=== PATIENT | female | born 1960 | race African-American/Black ===

== ENCOUNTER 2017-01-20 16:21 | Emergency (ER) | payer BC, OTHER ==
[~2017-01-20] VITALS: Ht 170.2 cm; Wt 59.0 kg
[2017-01-20 17:35] VITALS: BP 165/105
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
== END 2017-01-20 18:57 | disposition home or self-care (01) ==
LOC: ER 16:21
DX: M54.5 Low back pain (principal); V89.2XXA Person injured in unspecified motor-vehicle accident, traffic, initial encounter; Y93.89 Activity, other specified; Y92.488 Other paved roadways as the place of occurrence of the external cause; Y99.8 Other external cause status
CPT/HCPCS: 99281

== ENCOUNTER 2017-05-14 05:42 | Emergency (ER) | payer OTHER ==
[~2017-05-14] VITALS: Ht 175.3 cm; Wt 59.0 kg
[2017-05-14 05:49] VITALS: BP 144/92
[2017-05-14] MEDS ORDERED: IBUP-1007 PO (06:00)
--- NOTE | 2017-05-14 06:00 | PHYS DOC ---
Past Medical History Past Medical History: Hypertension, Other Past Surgical History: Other Additional Past Surgical Histo: CARPAL TUNNEL RELEASE, TRIGGER FINGER RELEASE, L KNEE SHAVING Alcohol Use: Occasionally Drug Use: None Adult General Chief Complaint Chief Complaint: WRIST PAIN HPI HPI Patient is a 56 year old female who presents here today complaining of right wrist pain that started approximately 2 days ago. Patient reports she was downstairs working on laundry in her basement 2 days ago when she thinks she must and picked up her laundry basket funny and started developing pain to her right wrist. Patient has no other complaints at this time. Patient has any weakness to her hand or wrist however she does have pain to the medial and lateral aspect of her distal radius and ulna. Patient denies any history significant for hypertension diabetes lung liver or kidney problems. Patient reports that lately and she's taken assist herself with the pain is shot of vodka last night and help her get some sleep however she reports that the shot of vodka did not do anything for pain nor did help her get any sleep. 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 Review of systems: Constitutional: Denies fever or chills Eyes: Denies change in visual acuity, redness, or eye pain HENT: Denies nasal congestion or sore throat Respiratory: Denies cough or shortness of breath Physical exam Constitutional: Well developed, well nourished, no acute distress, non-toxic appearance. HENT: Normocephalic, atraumatic, bilateral external ears normal, oropharynx moist, no oral exudates, nose normal. Eyes: PERRLA, EOMI, conjunctiva normal, no discharge. Neck: Normal range of motion, no tenderness, supple, no stridor. Cardiovascular:Heart rate regular rhythm, Lungs & Thorax: Bilateral breath sounds clear to auscultation Abdomen: Bowel sounds normal, soft, no tenderness, no masses, no pulsatile masses. Skin: Warm, dry, no erythema, no rash. Back: No tenderness, no CVA tenderness. Extremities: No tenderness, no cyanosis, no clubbing, ROM intact, no edema. Neurologic: Alert and oriented X 3, normal motor function, normal sensory function, no focal deficits noted. Psychologic: Affect normal, judgement normal, mood normal. Patient's ER physical exam is significant for tenderness to palpation to her right lateral medial aspects of her wrist. Patient has no soft tissue swelling. Patient is neurovascularly intact. Patient has no bony deformity. Patient's sensation and motor strength are intact except limited secondary to her discomfort and pain. X-ray right wrist: Assessment and plan This is a 56-year-old female who presents here today requesting assistance with discomfort to her right wrist that she sustained after lifting a heavy laundry basket. Patient is also requesting a work note because she does not think she' ll be able go to work today secondary to the pain in her right wrist. 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 Current Medications Current Medications Current Medications Medications (Trade) Dose Ordered Sig/Ulises Start Time Stop Time Status Last Admin Dose Admin Ibuprofen (Motrin) 600 mg 1X ONCE 05/14/17 06:30 05/14/17 06:31 DC 05/14/17 06:14 600 MG Allergies Allergies Allergies Coded Allergies Type Severity Reaction Last Updated Verified No Known Drug Allergies 11/01/13 No Current Patient Data Vital Signs Vital Signs Date Time Temp Pulse Resp B/P (MAP) Pulse Ox O2 Delivery O2 Flow Rate FiO2 05/14/17 05:49 98.4 88 16 96 Room Air 98.4 EKG EKG [] Radiology/Procedures Radiology/Procedures [] Course & Med Decision Making Course & Med Decision Making Pertinent Labs and Imaging studies reviewed. (See chart for details) [] Dragon Disclaimer Dragon Disclaimer This electronic medical record was generated, in whole or in part, using a voice recognition dictation system. Departure Departure Impression: Primary Impression: Right wrist sprain Disposition: HOME, SELF-CARE Condition: IMPROVED Referrals: UNKNOWN PCP NAME (PCP) Patient Instructions: Cast or Splint Care, Wrist Sprain with [facility] Scripts Ibuprofen (IBUPROFEN) 600 Mg Tablet 600 MG PO PRN Q6HRS Y for PAIN, #20 TAB Prov: CARLOS GREGG MD 05/14/17 Problem Qualifiers Primary Impression: Right wrist sprain Encounter type: initial encounter Qualified Codes: S63.501A - Unspecified sprain of right wrist, initial encounter CARLOS GREGG MD May 14, 2017 06:00
[2017-05-14] MEDS ORDERED: IBUPROFEN 600 MG TABLET. PO ONE (06:30)
--- NOTE | 2017-05-14 07:09 | RAD ---
Right wrist, 3 views, 05/14/2017: History: Wrist pain No acute fracture or dislocation is identified. There is an old healed fifth metacarpal fracture. Small calcific densities in the soft tissues along the ulnar aspect of the wrist appear old. There are mild degenerative changes at the radiocarpal articulation and the first CMC joint. Cystic and sclerotic changes in the lunate bone are probably on a degenerative basis. Old avascular necrosis is less likely. IMPRESSION: 1. Scattered degenerative changes as described above. 2. No acute bony abnormality is detected.
== END 2017-05-14 06:30 | disposition home or self-care (01) ==
LOC: ER 05:42
DX: S63.501A Unspecified sprain of right wrist, initial encounter (principal); I10 Essential (primary) hypertension; X50.0XXA Overexertion from strenuous movement or load, initial encounter; Y93.89 Activity, other specified; Y99.8 Other external cause status; Y92.89 Other specified places as the place of occurrence of the external cause
CPT/HCPCS: 29125; 73110; 99284-25

== ENCOUNTER 2017-08-02 08:59 | Emergency (ER) | payer OTHER | END 2017-08-02 09:59 | disposition home or self-care (01) | LOC: ER 08:59 | DX: S39.012A Strain of muscle, fascia and tendon of lower back, initial encounter (principal); X50.1XXA Overexertion from prolonged static or awkward postures, initial encounter; Y93.89 Activity, other specified; Y92.89 Other specified places as the place of occurrence of the external cause; Y99.8 Other external cause status | CPT/HCPCS: 99283 ==

== ENCOUNTER 2019-02-14 11:23 | Emergency (ER) | payer OTHER ==
[~2019-02-14] VITALS: Ht 175.3 cm; Wt 60.3 kg
[~2019-02-14 11:23] MED LIST: HYDR-3164 PO; IBUP-1007 PO
[2019-02-14] MEDS ORDERED: ASPIRIN 325 MG TABLET PO ONE (11:45)
--- NOTE | 2019-02-14 11:51 | PHYS DOC ---
Past Medical History Past Medical History: No Pertinent History Past Surgical History: Other Additional Past Surgical Histo: CARPAL TUNNEL RELEASE, TRIGGER FINGER RELEASE, L KNEE SHAVING Alcohol Use: Rarely Drug Use: None Adult General Chief Complaint Chief Complaint: CHEST PAIN HPI HPI Patient is a 58 year old female who presents with chest pain that started last night that is a pressure and sharp but comes and goes and is worse with inspiration. Patient states she also has shortness of breath. Patient states that over the last week she's felt more fatigued. Patient rates her pain at a 5/10. Review of Systems Review of Systems Constitutional: Fatigued. Denies fever or chills [] Eyes: Denies change in visual acuity, redness, or eye pain [] HENT: Denies nasal congestion or sore throat [] Respiratory: Denies cough or shortness of breath [] Cardiovascular: Right sided chest pain GI: Denies abdominal pain, nausea, vomiting, bloody stools or diarrhea [] : Denies dysuria or hematuria [] Musculoskeletal: Denies back pain or joint pain [] Integument: Denies rash or skin lesions [] Neurologic: Denies headache, focal weakness or sensory changes [] Endocrine: Denies polyuria or polydipsia [] All other systems were reviewed and found to be within normal limits, except as documented in this note. Current Medications Current Medications Current Medications Medications (Trade) Dose Ordered Sig/Ulises Start Time Stop Time Status Last Admin Dose Admin Aspirin (Babar Aspirin) 325 mg 1X ONCE 02/14/19 11:45 02/14/19 11:46 DC 02/14/19 12:09 325 MG Ketorolac Tromethamine (Toradol 30mg Vial) 30 mg 1X ONCE 02/14/19 12:30 02/14/19 12:31 DC 02/14/19 12:34 30 MG Sodium Chloride 1,000 ml @ 1,000 mls/hr 1X ONCE 02/14/19 13:15 02/14/19 14:14 DC 02/14/19 13:06 1,000 MLS/HR Allergies Allergies Allergies Coded Allergies Type Severity Reaction Last Updated Verified No Known Drug Allergies 11/01/13 No Physical Exam Physical Exam Constitutional: Well developed, well nourished, no acute distress, non-toxic appearance. [] HENT: Normocephalic, atraumatic, bilateral external ears normal, oropharynx mo ist, no oral exudates, nose normal. [] Eyes: PERRLA, EOMI, conjunctiva normal, no discharge. [] Neck: Normal range of motion, no tenderness, supple, no stridor. [] Cardiovascular:Heart rate regular rhythm, Sinus Rhythm, no STEMI. no murmur [] Lungs & Thorax: Bilateral breath sounds clear to auscultation [] Abdomen: Bowel sounds normal, soft, no tenderness, no masses, no pulsatile masses. [] Skin: Warm, dry, no erythema, no rash. [] Back: No tenderness, no CVA tenderness. [] Extremities: No tenderness, no cyanosis, no clubbing, ROM intact, no edema. [] Neurologic: Alert and oriented X 3, normal motor function, normal sensory function, no focal deficits noted. [] Psychologic: Affect normal, judgement normal, mood normal. [] Current Patient Data Vital Signs Vital Signs Date Time Temp Pulse Resp B/P (MAP) Pulse Ox O2 Delivery O2 Flow Rate FiO2 02/14/19 14:04 56 16 162/71 (101) 99 Room Air 02/14/19 11:25 98.0 98.0 Lab Values Laboratory Tests Test 02/14/19 11:45 02/14/19 12:50 White Blood Count 8.5 x10^3/uL (4.0-11.0) Red Blood Count 4.81 x10^6/uL (3.50-5.40) Hemoglobin 14.9 g/dL (12.0-15.5) Hematocrit 43.1 % (36.0-47.0) Mean Corpuscular Volume 90 fL (79-100) Mean Corpuscular Hemoglobin 31 pg (25-35) Mean Corpuscular Hemoglobin Concent 35 g/dL (31-37) Red Cell Distribution Width 13.8 % (11.5-14.5) Platelet Count 268 x10^3/uL (140-400) Neutrophils (%) (Auto) 63 % (31-73) Lymphocytes (%) (Auto) 26 % (24-48) Monocytes (%) (Auto) 10 % (0-9) H Eosinophils (%) (Auto) 1 % (0-3) Basophils (%) (Auto) 1 % (0-3) Neutrophils # (Auto) 5.3 x10^3/uL (1.8-7.7) Lymphocytes # (Auto) 2.2 x10^3/uL (1.0-4.8) Monocytes # (Auto) 0.8 x10^3/uL (0.0-1.1) Eosinophils # (Auto) 0.1 x10^3/uL (0.0-0.7) Basophils # (Auto) 0.1 x10^3/uL (0.0-0.2) D-Dimer (Veda) < 0.27 ug/mlFEU Sodium Level 144 mmol/L (136-145) Potassium Level 3.9 mmol/L (3.5-5.1) Chloride Level 106 mmol/L (98-107) Carbon Dioxide Level 27 mmol/L (21-32) Anion Gap 11 (6-14) Blood Urea Nitrogen 16 mg/dL (7-20) Creatinine 0.7 mg/dL (0.6-1.0) Estimated GFR (Cockcroft-Gault) 104.4 BUN/Creatinine Ratio 23 (6-20) H Glucose Level 118 mg/dL (70-99) H Calcium Level 9.1 mg/dL (8.5-10.1) Total Bilirubin 0.2 mg/dL (0.2-1.0) Aspartate Amino Transferase (AST) 20 U/L (15-37) Alanine Aminotransferase (ALT) 28 U/L (14-59) Alkaline Phosphatase 78 U/L (46-116) Troponin I Quantitative < 0.017 ng/mL (0.000-0.055) Total Protein 6.6 g/dL (6.4-8.2) Albumin 3.6 g/dL (3.4-5.0) Albumin/Globulin Ratio 1.2 (1.0-1.7) Lipase 147 U/L (73-393) Urine Collection Type Unknown Urine Color Yellow Urine Clarity Clear Urine pH 6.0 Urine Specific [place] 1.025 Urine Protein Negative mg/dL (NEG-TRACE) Urine Glucose (UA) Negative mg/dL (NEG) Urine Ketones (Stick) Negative mg/dL (NEG) Urine Blood Negative (NEG) Urine Nitrite Negative (NEG) Urine Bilirubin Negative (NEG) Urine Urobilinogen Dipstick 0.2 mg/dL (0.2 mg/dL) Urine Leukocyte Esterase Negative (NEG) Urine RBC Occ /HPF (0-2) Urine WBC 0 /HPF (0-4) Urine Squamous Epithelial Cells None /LPF Urine Amorphous Sediment Present /HPF Urine Bacteria Few /HPF (0-FEW) Urine Mucus Marked /LPF Urine Opiates Screen Neg (NEG) Urine Methadone Screen Neg (NEG) Urine Barbiturates Neg (NEG) Urine Phencyclidine Screen Neg (NEG) Urine Amphetamine/Methamphetamine Neg (NEG) Urine Benzodiazepines Screen Neg (NEG) Urine Cocaine Screen Neg (NEG) Urine Cannabinoids Screen Pos (NEG) Urine Ethyl Alcohol Neg (NEG) Laboratory Tests 02/14/19 11:45 Laboratory Tests 02/14/19 11:45 EKG EKG Sinus Rhythm and no STEMI Interpretation Time: [address] Mcfadden Radiology/Procedures Impressions: [facility] [address] [place] [address] IMAGING REPORT Signed PATIENT: MARY GALLARDO AACCOUNT: [id number] : 1960 LOCATION: ER AGE: 58 SEX: F EXAM STATUS: REG ER ORD. PHYSICIAN: JAZMYNE LANG APRN REASON: chest pain X1 day PROCEDURE: PORTABLE CHEST 1V EXAM: AP View of the chest DATE: 02/14/2019 11:31 AM INDICATION: Chest pain x1 day COMPARISON: No Prior FINDINGS: The heart is not enlarged. Mediastinal and hilar contours are normal. Emphysematous changes. No lobar consolidation. No pleural effusion or pneumothorax. Glenohumeral joint osteophytes arthritis IMPRESSION: 1. No radiographic evidence for acute cardiopulmonary process. Electronically signed by: Noam Sheffield MD (02/14/2019 12:42 PM) [facility] DICTATED and SIGNED BY: NOAM SHEFFIELD MD DATE: 02/14/19 1242 Course & Med Decision Making Course & Med Decision Making Patient is a 58 year old female who presents with chest pain that started last night that is a pressure and sharp but comes and goes and is worse with inspiration. Patient states she also has shortness of breath. Patient states that over the last week she's felt more fatigued. Patient rates her pain at a 5/10. States she takes no medications daily. Smoker but denies drug use. Denies nausea, vomiting, numbness or tingling, dizziness, visual changes, headache, syncope, abdominal pain. Abdomen is soft and nontender. Lungs are clear to auscultation all lobes. EKG shows sinus rhythm and no STEMI. No extremity swelling. Skin is pink warm and dry. Speaks in full clear sentences. Ambulatory with steady gait. PERRLA. Denies any weaknesses. Afebrile and vital signs are within normal limits. Mucous membranes are moist. Chest x-ray shows no acute findings. Blood work is unremarkable. Troponin is negative. D-dimer is negative. Heart score 2. Patient states the Toradol took off her pain away. Patient rates her pain as 0 out of 10. Second EKG shows sinus bradycardia and no STEMI. Second troponin is negative. Patient discharged home and follow-up with her primary care provider. Dragon Disclaimer Dragon Disclaimer This electronic medical record was generated, in whole or in part, using a voice recognition dictation system. The HEART Score for CP Pts HEART Score for Chest Pain: HEART Score for Chest Pain Response (Comments) Value History Slighlty/Non-Suspicious 0 ECG Normal 0 Age >45 - < 65 1 Risk Factors 1 or 2 Risk Factors 1 Troponin < Normal Limit 0 Total 2 Risk Factors: Risk Factors: DM, Current or recent (<one month) smoker, HTN, HLP, family history of CAD, obesity. Risk Scores: Score 0 - 3: 2.5% MACE over next 6 weeks - Discharge Home Score 4 - 6: 20.3% MACE over next 6 weeks - Admit for Clinical Observation Score 7 - 10: 72.7% MACE over next 6 weeks - Early Invasive Strategies Departure Departure Impression: Primary Impression: Chest pain Disposition: HOME, SELF-CARE Condition: STABLE Referrals: UNKNOWN PCP NAME (PCP) Patient Instructions: Chest Pain (Nonspecific) Additional Instructions: Follow-up with her primary care provider. Scripts Ibuprofen (IBUPROFEN) 600 Mg Tablet 600 MG PO PRN Q6HRS PRN for INFLAMMATION, #20 TAB Prov: JAZMYNE LANG ORNAMENTAL BRONZE WORKER 02/14/19 Problem Qualifiers Primary Impression: Chest pain Chest pain type: unspecified Qualified Codes: R07.9 - Chest pain, unspecified JAZMYNE LANG ORNAMENTAL BRONZE WORKER Feb 14, 2019 11:51
[2019-02-14 12:03] LABS: BASO # 0.1 x10^3/uL (0.0-0.2); BASO % 1 % (0-3); EOS # 0.1 x10^3/uL (0.0-0.7); EOS % 1 % (0-3); HEMATOCRIT 43.1 % (36.0-47.0); HEMOGLOBIN 14.9 g/dL (12.0-15.5); LYMPH # 2.2 x10^3/uL (1.0-4.8); LYMPH % 26 % (24-48); MEAN CORPUSCULAR HEMOGLOBIN 31 pg (25-35); MEAN CORPUSCULAR HGB CONC 35 g/dL (31-37); MEAN CORPUSCULAR VOLUME 90 fL (79-100); MONO # 0.8 x10^3/uL (0.0-1.1); MONO % 10 % (0-9); NEUT # 5.3 x10^3/uL (1.8-7.7); NEUT % 63 % (31-73); PLATELET COUNT 268 x10^3/uL (140-400); RED BLOOD COUNT 4.81 x10^6/uL (3.50-5.40); RED CELL DISTRIBUTION WIDTH 13.8 % (11.5-14.5); WHITE BLOOD COUNT 8.5 x10^3/uL (4.0-11.0)
[2019-02-14 12:14] LABS: CALCIUM 9.1 mg/dL (8.5-10.1); CREATININE 0.7 mg/dL (0.6-1.0); GFR 104.4; POTASSIUM 3.9 mmol/L (3.5-5.1)
[2019-02-14 12:22] LABS: ALBUMIN 3.6 g/dL (3.4-5.0); ALBUMIN/GLOBULIN RATIO 1.2 (1.0-1.7); TOTAL BILIRUBIN 0.2 mg/dL (0.2-1.0); TOTAL PROTEIN 6.6 g/dL (6.4-8.2)
[2019-02-14] MEDS ORDERED: KETOROLAC 30 MG/ML VIAL. IV ONE (12:30)
--- NOTE | 2019-02-14 12:45 | RAD ---
EXAM: AP View of the chest DATE: 02/14/2019 11:31 AM INDICATION: Chest pain x1 day COMPARISON: No Prior FINDINGS: The heart is not enlarged. Mediastinal and hilar contours are normal. Emphysematous changes. No lobar consolidation. No pleural effusion or pneumothorax. Glenohumeral joint osteophytes arthritis IMPRESSION: 1. No radiographic evidence for acute cardiopulmonary process. Electronically signed by: Noam Bejarano MD (02/14/2019 12:42 PM) [facility]
--- NOTE | 2019-02-14 12:49 | EKG ---
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
[2019-02-14 13:07] LABS: BILIRUBIN,URINE NEGATIVE (NEG); CLARITY,URINE CLEAR; COLOR,URINE YELLOW; NITRITE,URINE NEGATIVE (NEG); PROTEIN,URINE NEGATIVE (NEG-TRACE); UROBILINOGEN,URINE 0.2 mg/dL (0.2 mg/dL)
[2019-02-14 13:14] LABS: BARBITURATES NEG (NEG); BENZODIAZEPINES NEG (NEG); CANNABINOIDS POS (NEG); COCAINE NEG (NEG); METHADONE NEG (NEG); OPIATES NEG (NEG); PHENCYCLIDINE NEG (NEG)
[2019-02-14 13:15] LABS: AMPHETAMINE/METHAMPHETAMINE NEG (NEG)
[2019-02-14] MEDS ORDERED: IV NORMAL SALINE 1000ML BAG 1,000 ML IV ONE (13:15)
[2019-02-14 13:19] LABS: AMORPHOUS SEDIMENT,UR PRESENT /HPF; BACTERIA,URINE FEW /HPF (0-FEW); RBC,URINE OCC /HPF (0-2); WBC,URINE 0 /HPF (0-4)
[2019-02-14 14:34] VITALS: BP 154/79
[2019-02-14] MEDS ORDERED: IBUP-1007 PO (15:04)
--- NOTE | 2019-02-14 17:25 | EKG ---
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
== END 2019-02-14 15:50 | disposition home or self-care (01) ==
LOC: ER 11:23
DX: R07.89 Other chest pain (principal); R06.02 Shortness of breath; R53.83 Other fatigue; F17.200 Nicotine dependence, unspecified, uncomplicated
CPT/HCPCS: 36415; 71045; 80053; 80307; 81001; 83690; 84484; 85025; 85379; 93005; 96374; 99285; J1885; J7030

== ENCOUNTER 2020-01-15 06:49 | Emergency (ER) | payer OTHER ==
[~2020-01-15] VITALS: Ht 170.2 cm; Wt 59.0 kg
[2020-01-15 07:00] VITALS: BP 144/79
[2020-01-15] MEDS ORDERED: DIPH25CA58 PO (07:10)
[2020-01-15] MEDS ORDERED: CEPH-263 PO (07:10)
--- NOTE | 2020-01-15 07:10 | PHYS DOC ---
Past Medical History Past Medical History: No Pertinent History Past Surgical History: Other Additional Past Surgical Histo: CARPAL TUNNEL RELEASE, TRIGGER FINGER RELEASE, L KNEE SHAVING Smoking Status: Current Every Day Smoker Alcohol Use: Occasionally Drug Use: None General Adult EDM: Chief Complaint: ANKLE PROBLEM HPI: HPI: 59-year-old female presented emergency department today after getting a bee sting on the medial aspect of her right ankle. It happened yesterday. Since then she has had some swelling with pain. She does not believe she will be able to work today. Her pain is a throbbing aching pain that is nonradiating without alleviating factors. She denies any fevers. She has had some redness around the area. Review of systems negative for headache vomiting fevers chills. All other review of systems negative ED course: 59-year-old female presenting with a bee sting from yesterday. We will start her on Keflex and Benadryl. Will provide a work note today. She is to return for any difficulty breathing or worsening rash or development of fever. Heart Score: Risk Factors: Risk Factors: DM, Current or recent (<one month) smoker, HTN, HLP, family history of CAD, obesity. Risk Scores: Score 0 - 3: 2.5% MACE over next 6 weeks - Discharge Home Score 4 - 6: 20.3% MACE over next 6 weeks - Admit for Clinical Observation Score 7 - 10: 72.7% MACE over next 6 weeks - Early Invasive Strategies Allergies: Allergies: Allergies Coded Allergies Type Severity Reaction Last Updated Verified No Known Drug Allergies 11/01/13 No Physical Exam: PE: Constitutional: Well developed, well nourished, no acute distress, non-toxic appearance. [] HENT: Normocephalic, atraumatic, bilateral external ears normal, oropharynx moist, no oral exudates, nose normal. [] Eyes: PERRLA, EOMI, conjunctiva normal, no discharge. [] Neck: Normal range of motion, no tenderness, supple, no stridor. [] Cardiovascular:Heart rate regular rhythm, no murmur [] Lungs & Thorax: Bilateral breath sounds clear to auscultation [] Abdomen: Bowel sounds normal, soft, no tenderness, no masses, no pulsatile masses. [] Skin: Warm, dry, no erythema, no rash. [] Back: No tenderness, no CVA tenderness. [] Extremities: The patient's right lower extremity has some swelling on the medial aspect of the ankle. There is some redness. It is mildly tender to touch. Normal neurovascular status with using cap refill and palpable pulse. Neurologic: Alert and oriented X 3, normal motor function, normal sensory function, no focal deficits noted. [] Psychologic: Affect normal, judgement normal, mood normal. [] EKG: EKG: [] Radiology/Procedures: Radiology/Procedures: [] Course & Med Decision Making: Course & Med Decision Making Pertinent Labs and Imaging studies reviewed. (See chart for details) [] Dragon Disclaimer: Dragon Disclaimer: This electronic medical record was generated, in whole or in part, using a voice recognition dictation system. Departure Departure Impression: Primary Impression: Bee sting reaction Disposition: HOME, SELF-CARE Condition: STABLE Referrals: UNKNOWN PCP NAME (PCP) Patient Instructions: Bee, Wasp, or Hornet Sting Scripts Cephalexin (KEFLEX) 250 Mg Capsule 2 CAP PO TID for 5 Days, #30 CAP 0 Refills Prov: EAN FREDERICK MD 01/15/20 Diphenhydramine Hcl (BENADRYL) 25 Mg Capsule 1 CAP PO QIDPRN for ITCHING, #20 CAP 0 Refills Prov: EAN FREDERICK MD 01/15/20 Justicifation of Admission Dx: Justifications for Admission: Justification of Admission Dx: N/A EAN FREDERICK MD Jan 15, 2020 07:10
== END 2020-01-15 07:15 | disposition home or self-care (01) ==
LOC: ER 06:49
DX: T63.441A Toxic effect of venom of bees, accidental (unintentional), initial encounter (principal); M25.571 Pain in right ankle and joints of right foot; F17.200 Nicotine dependence, unspecified, uncomplicated; Y92.89 Other specified places as the place of occurrence of the external cause
CPT/HCPCS: 99283